=== PATIENT | female | born 1990 | race American Indian/Alaskan Native ===

== ENCOUNTER 2017-01-27 19:16 | Emergency (ER) | payer OTHER ==
[2017-01-27 19:45] VITALS: BP 110/78
--- NOTE | 2017-01-27 20:52 | Emergency Department Report ---
ED General Adult HPI - General Chief complaint: Extremity Injury, Upper Stated complaint: HANDS SWOLLEN/RASH ON ELBOWS Time Seen by Provider: 01/27/17 20:45 Source: patient Mode of arrival: Ambulatory Limitations: No Limitations - History of Present Illness Initial comments: 26-year-old -Chinese female with no past medical history comes in today for complaints of swelling in her hands and rash on her elbows for about a month. Patient reports that she was seen by her [place] doctor and they reported that she had tendinitis and she's been taken naproxen without any success of bringing her swelling in her hands down. 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 Denies any fever or chills she has had no nausea no vomiting her last menstrual period was 2016. - Related Data Previous Rx's Medication Instructions Recorded Last Taken Type Promethazine [Phenergan] 25 mg PO Q6H PRN #14 tablet 08/23/13 Unknown Rx Ibuprofen [Motrin] 600 mg PO Q8H PRN #30 tablet 01/27/17 Unknown Rx Allergies Allergy/AdvReac Type Severity Reaction Status Date / Time No Known Allergies Allergy Unverified 08/23/13 16:47 ED Review of Systems ROS: Stated complaint: HANDS SWOLLEN/RASH ON ELBOWS Other details as noted in HPI Constitutional: denies: chills, fever Eyes: denies: eye pain, eye discharge, vision change ENT: denies: ear pain, throat pain Respiratory: denies: cough, shortness of breath, wheezing Cardiovascular: denies: chest pain, palpitations Endocrine: no symptoms reported Gastrointestinal: denies: abdominal pain, nausea, diarrhea Genitourinary: denies: urgency, dysuria, discharge Musculoskeletal: denies: back pain, joint swelling, arthralgia Skin: change in hair/nails, other ED Past Medical Hx - Past Medical History Previous Medical History?: No - Surgical History Past Surgical History?: No - Social History Smoking Status: Never Smoker Substance Use Type: None - Medications Home Medications: Home Medications Medication Instructions Recorded Confirmed Last Taken Type Promethazine [Phenergan] 25 mg PO Q6H PRN #14 tablet 08/23/13 Unknown Rx Ibuprofen [Motrin] 600 mg PO Q8H PRN #30 tablet 01/27/17 Unknown Rx ED Physical Exam - General Limitations: No Limitations - Skin Skin exam: Present: warm, dry, intact, rash (bilateral elbows), erythema, vesicles (bilateral elbows), other (swelling and fingers and around cuticles, mildly erythematous with some tenderness to palpate) ED Course Vital Signs 01/27/17 19:39 Temperature 98.4 F Pulse Rate 67 Respiratory 18 Rate Blood Pressure 110/78 O2 Sat by Pulse 98 Oximetry ED Medical Decision Making - Lab Data Result diagrams: 01/27/17 21:03 01/27/17 21:03 - Medical Decision Making Patient has been evaluated by this provider fast rate. I discussed the patient will do some blood work consisted of a sedimentation rate CBC and BMP. We'll also offer her Motrin 600 mg to see if we can help with the swelling of her hands and pain. Patient verbalized understanding Patient's ESR was 27 CBC is within normal limits discussed with patient to avoid salt intake increase water, elevate her hands at night and follow up with her primary care provider in 3-5 days. Critical care attestation.: If time is entered above; I have spent that time in minutes in the direct care of this critically ill patient, excluding procedure time. ED Disposition Clinical Impression: Bilateral hand swelling Disposition: DISCHARGED TO HOME OR SELFCARE Is pt being admited?: No Does the pt Need Aspirin: No Condition: Stable Additional Instructions: Increase water intake, Decrease salt intake. Stop the Naproxen start with the Motrin. Follow up with your Primary care provider. Prescriptions: Ibuprofen [Motrin] 600 mg PO Q8H PRN #30 tablet PRN Reason: Pain Referrals: PRIMARY CARE, [Primary Care Provider] - 3-5 Days Forms: Work/School Release Form(ED)
[2017-01-27] MEDS ORDERED: MOTRIN PO ONE (20:53)
[2017-01-27 21:14] LABS: Basophils % (Auto) 0.2 % (0.0-1.8); Eosinophils % (Auto) 0.2 % (0.0-4.3); Hematocrit 37.2 % (30.3-42.9); Hemoglobin 11.7 gm/dl (10.1-14.3); Mean Corpuscular HGB Conc 32 % (30-34); Mean Corpuscular Hemoglobin 25 pg (28-32); Mean Corpuscular Volume 80 fl (79-97); Platelet Count 219 K/mm3 (140-440); Red Blood Count 4.66 M/mm3 (3.65-5.03); Red Cell Distribution Width 13.5 % (13.2-15.2); White Blood Count 4.7 K/mm3 (4.5-11.0)
[2017-01-27 21:31] LABS: Anion Gap 16 mmol/L; BUN/Creatinine Ratio 27.14; Blood Urea Nitrogen 19 mg/dL (7-17); Carbon Dioxide 27 mmol/L (22-30); Chloride 98.9 mmol/L (98-107); Glucose 127 mg/dL (65-100); Potassium 3.4 mmol/L (3.6-5.0); Sodium 138 mmol/L (137-145)
[2017-01-27 21:34] LABS: Erythrocyte Sedimentation Rate 27 mm/Hr (0-20)
== END 2017-01-27 22:35 | disposition home or self-care (01) ==
LOC: ED 19:16
DX: M79.89 Other specified soft tissue disorders (principal)
CPT/HCPCS: 36415; 80048; 85025; 85652; 99283

== ENCOUNTER 2019-10-03 18:27 | Emergency (ER) | payer BC, OTHER ==
[2019-10-03] MEDS ORDERED: HYDROcodone/ACETAMINOPHEN 10-325MG TAB PO ONE (20:20)
[2019-10-03] MEDS ORDERED: ONDANSETRON 4 MG ODT TAB PO ONE (20:20)
[2019-10-03 20:21] VITALS: BP 135/81
[2019-10-03] MEDS ORDERED: predniSONE 20 MG TAB PO ONE (20:23)
--- NOTE | 2019-10-03 20:24 | Event Note ---
ED Screening Note ED Screening Note: Patient complains of right sided CP that started this morning. H/O Lupus. No trauma This initial assessment/diagnostic orders/clinical plan/treatment(s) is/are subject to change based on patients health status, clinical progression and re- assessment by fellow clinical providers in the ED. Further treatment and workup at subsequent clinical providers discretion. Patient/guardian urged not to elope from the ED as their condition may be serious if not clinically assessed and managed. Initial orders include:
[2019-10-03 21:11] LABS: Basophils % (Auto) 0.4 % (0.0-1.8); Eosinophils % (Auto) 0.1 % (0.0-4.3); Hematocrit 38.6 % (30.3-42.9); Hemoglobin 12.4 gm/dl (10.1-14.3); Lymphocytes # (Auto) 1.1 K/mm3 (1.2-5.4); Lymphocytes % (Auto) 17.4 % (13.4-35.0); Mean Corpuscular HGB Conc 32 % (30-34); Mean Corpuscular Volume 79 fl (79-97); Monocytes # (Auto) 0.6 K/mm3 (0.0-0.8); Monocytes % (Auto) 9.5 % (0.0-7.3); Platelet Count 221 K/mm3 (140-440); Red Blood Count 4.87 M/mm3 (3.65-5.03); Red Cell Distribution Width 13.3 % (13.2-15.2)
[2019-10-03 21:20] LABS: INR 1.09 (0.87-1.13)
[2019-10-03 21:21] LABS: Partial Thromboplastin Time 30.5 Sec. (24.2-36.6)
--- NOTE | 2019-10-03 21:24 | XRay Report ---
CHEST PA AND LATERAL VIEWS INDICATION: Chest Pain. COMPARISON: 09/23/2017. FINDINGS: Support devices: None. Heart: Within normal limits. Lungs/Pleura: No acute pulmonary or pleural findings. IMPRESSION: 1. No acute findings. Signer Name: Avinash Sloan MD Signed: 10/03/2019 9:20 PM Workstation Name: [id number]
[2019-10-03 21:36] LABS: Alanine Aminotransferase 10 units/L (7-56); Albumin 4.3 g/dL (3.9-5); BUN/Creatinine Ratio 16; Blood Urea Nitrogen 13 mg/dL (7-17); Calcium 9.5 mg/dL (8.4-10.2); Hemolysis Index 3
--- NOTE | 2019-10-04 02:47 | Emergency Department Report ---
ED Extremity Problem HPI - General Chief complaint: Chest Pain Stated complaint: CHEST PAIN Time Seen by Provider: 10/03/19 20:18 Source: patient Mode of arrival: Ambulatory Limitations: No Limitations - History of Present Illness Initial comments: Patient is a 28-year-old -[place] female with a history of SLE unknown medication who presents to the ED with complaint of acute onset of persistent severe right shoulder pain that radiates to the anterior right chest wall for 3 hours intermittently. Patient denies fall, traumatic injury, heavy lifting, shortness of breath, dizziness, syncope, neck pain, palpitations, abdominal pain, back pain or cough. Patient states the pain is worse with any movement deep inhalation, palpation of the right shoulder or chest wall or active range of motion right arm. MD Complaint: extremity pain (right shoulder pain), other (right chest wall pain) -: Sudden, hour(s) (3) Location: right, upper extremity (shoulder), other (right chest wall) History of Same: No -: Yes myalgia, Yes arthralgia, No fever, No associated dyspnea, Yes associated chest pain (right sided) Radiation: none Severity scale (0 -10): 9 Quality: aching, sharp Consistency: intermittent Improves with: nothing Worsens with: weight bearing, walking, palpation Associated Symptoms: denies other symptoms, chest pain (right chest wall). denies: shortness of breath, fever, myalgias, arthralgias, rash - Related Data Home Medications Medication Instructions Recorded Confirmed Last Taken Hydroxychloroquine [Plaquenil] 300 mg PO QDAY 09/23/17 09/23/17 09/22/17 Previous Rx's Medication Instructions Recorded Last Taken Type Colchicine [Colcrys] 0.6 mg PO DAILY #10 tablet 09/25/17 Unknown Rx Pantoprazole [Protonix TAB] 40 mg PO QDAY #30 tablet 09/25/17 Unknown Rx Naproxen 500 mg PO Q12H PRN #30 tablet 10/04/19 Unknown Rx Prednisone [predniSONE 10 mg 10 mg PO .TAPER #21 tab.ds.pk 10/04/19 Unknown Rx (6-Day Pack, 21 Tabs)] tiZANidine [Zanaflex 4mg TAB] 4 mg PO Q8H PRN #21 tablet 10/04/19 Unknown Rx traMADoL [Ultram 50 MG tab] 50 mg PO Q6HR PRN #12 tablet 10/04/19 Unknown Rx Allergies Allergy/AdvReac Type Severity Reaction Status Date / Time No Known Allergies Allergy Unverified 08/23/13 16:47 ED Review of Systems ROS: Stated complaint: CHEST PAIN Other details as noted in HPI Constitutional: denies: chills, fever Eyes: denies: eye pain, eye discharge, vision change ENT: denies: ear pain, throat pain Respiratory: denies: cough, shortness of breath, wheezing Cardiovascular: chest pain (right chest wall pain). denies: palpitations Endocrine: no symptoms reported Gastrointestinal: denies: abdominal pain, nausea, diarrhea Genitourinary: denies: urgency, dysuria, discharge Musculoskeletal: arthralgia (right shoulder). denies: back pain, joint swelling Skin: denies: rash, lesions Neurological: denies: headache, weakness, paresthesias Psychiatric: denies: anxiety, depression Hematological/Lymphatic: denies: easy bleeding, easy bruising ED Past Medical Hx - Past Medical History Previous Medical History?: Yes Hx Heart Attack/AMI: No Hx Congestive Heart Failure: No Hx Diabetes: No Hx Arthritis: No Hx Asthma: No Hx COPD: No Hx HIV: No Additional medical history: Lupus. pericarditis. Vaginal delivery 02-28-2010 - Surgical History Past Surgical History?: No - Social History Smoking Status: Never Smoker - Medications Home Medications: Home Medications Medication Instructions Recorded Confirmed Last Taken Type Hydroxychloroquine [Plaquenil] 300 mg PO QDAY 09/23/17 09/23/17 09/22/17 History Colchicine [Colcrys] 0.6 mg PO DAILY #10 tablet 09/25/17 Unknown Rx Pantoprazole [Protonix TAB] 40 mg PO QDAY #30 tablet 09/25/17 Unknown Rx Naproxen 500 mg PO Q12H PRN #30 tablet 10/04/19 Unknown Rx Prednisone [predniSONE 10 mg 10 mg PO .TAPER #21 tab.ds.pk 10/04/19 Unknown Rx (6-Day Pack, 21 Tabs)] tiZANidine [Zanaflex 4mg TAB] 4 mg PO Q8H PRN #21 tablet 10/04/19 Unknown Rx traMADoL [Ultram 50 MG tab] 50 mg PO Q6HR PRN #12 tablet 10/04/19 Unknown Rx ED Physical Exam - General Limitations: No Limitations General appearance: alert, in no apparent distress - Head Head exam: Present: atraumatic, normocephalic, normal inspection - Eye Eye exam: Present: normal appearance, PERRL, EOMI Pupils: Present: normal accommodation - ENT ENT exam: Present: normal exam, normal orophraynx, mucous membranes moist, TM's normal bilaterally, normal external ear exam - Neck Neck exam: Present: normal inspection, full ROM. Absent: tenderness - Respiratory Respiratory exam: Present: normal lung sounds bilaterally, chest wall tenderness (palpable right chest wall tenderness). Absent: respiratory distress, wheezes, rales, accessory muscle use, prolonged expiratory - Cardiovascular Cardiovascular Exam: Present: regular rate, normal rhythm, normal heart sounds. Absent: systolic murmur, diastolic murmur, rubs, gallop - GI/Abdominal GI/Abdominal exam: Present: soft, normal bowel sounds. Absent: tenderness, guarding, hyperactive bowel sounds, organomegaly - Extremities Exam Extremities exam: Present: normal inspection, full ROM, tenderness (Palpable right shoulder tenderness), normal capillary refill. Absent: pedal edema, joint swelling - Back Exam Back exam: Present: normal inspection, full ROM. Absent: tenderness, CVA tenderness (R), CVA tenderness (L), muscle spasm, paraspinal tenderness - Neurological Exam Neurological exam: Present: alert, oriented X3, CN II-XII intact, normal gait, reflexes normal - Psychiatric Psychiatric exam: Present: normal affect, normal mood - Skin Skin exam: Present: warm, dry, intact, normal color. Absent: rash ED Course Vital Signs 10/03/19 20:19 Temperature 98.1 F Pulse Rate 82 Respiratory 18 Rate Blood Pressure 135/81 O2 Sat by Pulse 97 Oximetry ED Medical Decision Making - Lab Data Result diagrams: 10/03/19 20:51 10/03/19 20:51 - Radiology Data Radiology results: report reviewed, image reviewed Chest x-ray shows no acute cardiopulmonary abnormalities or pneumonitis, pneumothorax or pleural effusion. - Medical Decision Making This is a 28-year-old female with a history of SLE and on medications who presented to the ED with acute onset persistent nontraumatic right shoulder pain that radiates to the right chest wall for 3 hours. In the ED, patient is alert and oriented 3 and is not in distress. Patient was treated in the ED for pain. On reevaluation, patient's pain is well controlled with medications. Lab test results were reviewed about all nonactionable. Chest x-ray shows no acute cardiopulmonary or metabolic disorder pneumonitis, pleural effusion or pneumothorax. Patient was discharged home on pain medications and muscle relaxants and advised to follow-up her primary care physician in 5-7 days for reevaluation or return to the ED immediately if symptoms get worse. - Differential Diagnosis costochondritis; Bursitis; muscle strain; muscle spasm Critical care attestation.: If time is entered above; I have spent that time in minutes in the direct care of this critically ill patient, excluding procedure time. ED Disposition Clinical Impression: Muscle strain of anterior chest wall, Bursitis of right shoulder Sprain of right shoulder girdle Qualifiers: Encounter type: initial encounter Qualified Code(s): S43.91XA - Sprain of unspecified parts of right shoulder girdle, initial encounter Disposition: TO HOME OR SELFCARE Is pt being admited?: No Does the pt Need Aspirin: No Condition: Stable Instructions: Muscle Strain (ED), Musculoskeletal Pain (ED), Shoulder Bursitis (ED) Additional Instructions: Take medications with food, drink plenty of fluids and follow-up with your primary care physician in 7-10 days for reevaluation. Return to the ED immediately if symptoms get worse. Prescriptions: Naproxen 500 mg PO Q12H PRN #30 tablet PRN Reason: Pain , Severe (7-10) Prednisone [predniSONE 10 mg (6-Day Pack, 21 Tabs)] 10 mg PO .TAPER #21 tab.ds.pk traMADoL [Ultram 50 MG tab] 50 mg PO Q6HR PRN #12 tablet PRN Reason: Pain tiZANidine [Zanaflex 4mg TAB] 4 mg PO Q8H PRN #21 tablet PRN Reason: Muscle Spasm Referrals: EMMANUEL MYRICK JR, MD [Primary Care Provider] - 3-5 Days Forms: Work/School Release Form(ED) Time of Disposition: 02:44 Print Language: MACANESE
== END 2019-10-04 03:00 | disposition home or self-care (01) ==
LOC: ED 18:27
DX: S29.011A Strain of muscle and tendon of front wall of thorax, initial encounter (principal); S43.91XA Sprain of unspecified parts of right shoulder girdle, initial encounter; Z79.899 Other long term (current) drug therapy; X58.XXXA Exposure to other specified factors, initial encounter; Y93.89 Activity, other specified; Y92.89 Other specified places as the place of occurrence of the external cause; Y99.8 Other external cause status
CPT/HCPCS: 36415; 71046; 80053; 84484; 85025; 85610; 85730; 93005; 93010; 99284; J7512; Q0162